=== PATIENT | female | born 1985 | race American Indian/Alaskan Native ===

== ENCOUNTER 2018-04-29 22:34 | Emergency (ER) | payer OTHER ==
[2018-04-29 23:06] VITALS: BP 122/81
[2018-04-29] MEDS ORDERED: IBUPROFEN ONE (23:22)
[2018-04-29] MEDS ORDERED: IBUPROFEN PO ONE (23:24)
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
== END 2018-04-30 01:18 | disposition home or self-care (01) ==
LOC: ED 22:34
DX: S39.012A Strain of muscle, fascia and tendon of lower back, initial encounter (principal); M25.561 Pain in right knee; V49.49XA Driver injured in collision with other motor vehicles in traffic accident, initial encounter; Y93.89 Activity, other specified; Y92.410 Unspecified street and highway as the place of occurrence of the external cause; Y99.8 Other external cause status
CPT/HCPCS: 99282

== ENCOUNTER 2021-08-12 13:53 | Emergency (ER) | payer BC, OTHER ==
[2021-08-12 15:38] VITALS: BP 128/84
[2021-08-12] MEDS ORDERED: KETOROLAC 60 MG/2 ML INJ IM STA (17:44)
--- NOTE | 2021-08-12 17:50 | Emergency Department Report ---
ED General Adult HPI - General Chief complaint: Headache Stated complaint: NECK AND HEAD PAIN Time Seen by Provider: 08/12/21 17:42 Source: patient Mode of arrival: Ambulatory Limitations: No Limitations - History of Present Illness Initial comments: 36-year-old -[place] female Steven emerged from complaining of spontaneously developing neck pain about 4 5 days ago. States that she was sleeping when she woke up she had discomfort to the left side of her neck that has since moved over towards the right side of her neck and abdominal throbbing nature pain is worse with palpation and range of motion. She reports no numbness or tingling, no blurred vision, no tinnitus, no presyncope. She reports no chest pain or palpitations. 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 Radiation: non-radiation Severity scale (0 -10): 10 Quality: aching, dull Consistency: constant Improves with: none Worsens with: none Associated Symptoms: denies: confusion, chest pain, loss of appetite, malaise, nausea/vomiting Treatments Prior to Arrival: none - Related Data Previous Rx's Medication Instructions Recorded Last Taken Type Cyclobenzaprine [Flexeril] 10 mg PO BID PRN #20 tablet 04/30/18 Unknown Rx Menthol/Camphor [[place] 1 applicatio TP QID PRN #1 tube 04/30/18 Unknown Rx Ointment] Naproxen 500 mg PO BID PRN #30 tablet 04/30/18 Unknown Rx Ketorolac [Toradol] 10 mg PO Q6H PRN #15 tablet 08/12/21 Unknown Rx methOCARBAMOL [Robaxin] 750 mg PO Q8H PRN #21 tablet 08/12/21 Unknown Rx Allergies Allergy/AdvReac Type Severity Reaction Status Date / Time No Known Allergies Allergy Unverified 04/29/18 23:05 ED Review of Systems ROS: Stated complaint: NECK AND HEAD PAIN Other details as noted in HPI Comment: All other systems reviewed and negative ED Past Medical Hx - Surgical History Additional Surgical History: DOUBLE HERNIA - Social History Smoking Status: Never Smoker Substance Use Type: None - Medications Home Medications: Home Medications Medication Instructions Recorded Confirmed Last Taken Type Cyclobenzaprine [Flexeril] 10 mg PO BID PRN #20 tablet 04/30/18 Unknown Rx Menthol/Camphor [[place] 1 applicatio TP QID PRN #1 tube 04/30/18 Unknown Rx Ointment] Naproxen 500 mg PO BID PRN #30 tablet 04/30/18 Unknown Rx Ketorolac [Toradol] 10 mg PO Q6H PRN #15 tablet 08/12/21 Unknown Rx methOCARBAMOL [Robaxin] 750 mg PO Q8H PRN #21 tablet 08/12/21 Unknown Rx ED Physical Exam - General Limitations: No Limitations General appearance: alert, in no apparent distress - Head Head exam: Present: atraumatic, normocephalic - Eye Eye exam: Present: normal appearance, PERRL, EOMI Pupils: Present: normal accommodation - ENT ENT exam: Present: normal exam, normal orophraynx, mucous membranes moist, TM's normal bilaterally - Neck Neck exam: Present: normal inspection, tenderness, full ROM, other - Expanded Neck Exam Expanded Neck exam: Present: tenderness. Absent: midline deformity, anterior neck swelling, thyroid mass, carotid bruit, tracheal deviation 1 - Tenderness with palpation along this region. No rashes present. No lymphadenopathy present. - Respiratory Respiratory exam: Present: normal lung sounds bilaterally. Absent: respiratory distress, wheezes, rales, rhonchi, stridor, chest wall tenderness, accessory muscle use, decreased breath sounds - Cardiovascular Cardiovascular Exam: Present: regular rate, normal rhythm. Absent: bradycardia, tachycardia, systolic murmur, diastolic murmur, rubs, gallop - GI/Abdominal GI/Abdominal exam: Present: soft, normal bowel sounds - Extremities Exam Extremities exam: Present: normal inspection, full ROM, normal capillary refill. Absent: tenderness, pedal edema, joint swelling - Back Exam Back exam: Present: normal inspection. Absent: CVA tenderness (R), CVA tenderness (L) - Neurological Exam Neurological exam: Present: alert, oriented X3 - Psychiatric Psychiatric exam: Present: normal affect, normal mood - Skin Skin exam: Present: warm, dry, intact, normal color. Absent: rash ED Course Vital Signs 08/12/21 15:37 Temperature 98.4 F Pulse Rate 85 Respiratory 18 Rate Blood Pressure 128/84 [Right] O2 Sat by Pulse 98 Oximetry Critical care attestation.: If time is entered above; I have spent that time in minutes in the direct care of this critically ill patient, excluding procedure time. ED Disposition Clinical Impression: Neck pain Disposition: HOME / SELF CARE / HOMELESS Is pt being admited?: No Does the pt Need Aspirin: No Condition: Stable Instructions: Musculoskeletal Pain, Cervical Radiculopathy, Acute Torticollis, Adult Referrals: TERESA MOORE MD [Staff Physician] - 3-5 Days PRIMARY CARE, [Primary Care Provider] - 3-5 Days (Keep the appointment you have with your primary care provider on August 19, 2021)
== END 2021-08-12 19:37 | disposition home or self-care (01) ==
LOC: ED 13:53
DX: M54.2 Cervicalgia (principal); R51.9 Headache, unspecified; Z79.899 Other long term (current) drug therapy
CPT/HCPCS: 96372; 99282; J1885